=== PATIENT | female | born 1995 | race Caucasian/White ===

== ENCOUNTER 2019-10-05 16:32 | Emergency (ER) | payer OTHER ==
[~2019-10-05] VITALS: Ht 162.6 cm; Wt 88.9 kg
[~2019-10-05 16:32] MED LIST: CALC600T56 PO; FERR-15 PO; PREN-385 PO
[2019-10-05 16:59] VITALS: BP 123/74
--- NOTE | 2019-10-05 18:10 | NUR ---
PT AMBULATED TO ER BED 01
--- NOTE | 2019-10-05 18:15 | NUR ---
24 YR F BIB SELF C/O HEMORRHOID PAIN X 1 MONTH PMH- DENIES
[2019-10-05 18:58] VITALS: BP 112/71
--- NOTE | 2019-10-05 18:58 | NUR ---
Patient discharged with v/s stable. Written and verbal after care instructions given and explained. Patient alert, oriented and verbalized understanding of instructions. Ambulatory with steady gait. All questions addressed prior to discharge. ID band removed. Patient advised to follow up with PMD. Rx of Anusol, Colace given. Patient educated on indication of medication including possible reaction and side effects. Opportunity to ask questions provided and answered.
== END 2019-10-05 18:58 | disposition home or self-care (01) ==
LOC: MED 16:32
DX: K64.9 Unspecified hemorrhoids (principal); Z79.899 Other long term (current) drug therapy
CPT/HCPCS: 99282